=== PATIENT | male | born 1975 | race Caucasian/White ===

== ENCOUNTER 2021-08-24 12:51 | Emergency (ER) | payer MEDICAID, SELFPAY ==
[2021-08-24 12:52] VITALS: BP 176/105; PULSE 72; RESP 18; TEMP 36.7; O2SAT 99
--- NOTE | 2021-08-24 13:00 | DI.RAD_ITS ---
Exam(s) XR SHOULDER RT COMPLETE 2+V EXAM: XR SHOULDER RT COMPLETE 2+V CLINICAL HISTORY: pain, injury, crepitus. TECHNIQUE: 2D digital imaging was performed. COMPARISON: No exams were available for comparison FINDINGS: Four views of the right shoulder reveal no evidence of acute fracture nor dislocation. No abnormal s oft tissue calcifications. However, there are advanced osteoarthritic degenerative changes including advanced joint space narrowing and small osteophyte on the inferior articular surface of the humeral head. Subacromial space is not diminished. There is some osteophytic density paralleling the superior surf obie of the acromion which is probably degenerative versus prior trauma. IMPRESSION: Advanced degenerative changes in the glenohumeral joint. DATA REPOSITORY: RADIATION DOSE DELIVERED:
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
[2021-08-24] MEDS: Acetaminophen 325 MG TAB 650 MG PO (13:09)
== END 2021-08-24 15:11 | disposition home or self-care (01) ==
PROVIDERS: Emergency Provider Student in an Organized Health Care Education/Training Program
DX: M25.511 Pain in right shoulder (principal)
CPT/HCPCS: 99285; 73030; 99283

== ENCOUNTER 2021-10-23 10:55 | Emergency (ER) | payer MEDICAID, SELFPAY ==
[2021-10-23 10:58] VITALS: BP 144/85; PULSE 80; RESP 18; TEMP 36.3; O2SAT 98
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
== END 2021-10-23 11:51 | disposition home or self-care (01) ==
PROVIDERS: Emergency Provider Emergency Medicine
DX: S46.091A Other injury of muscle(s) and tendon(s) of the rotator cuff of right shoulder, initial encounter (principal); X58.XXXA Exposure to other specified factors, initial encounter
CPT/HCPCS: 99282

== ENCOUNTER 2021-11-22 09:15 | Emergency (ER) | payer MEDICAID, SELFPAY ==
[2021-11-22 09:17] VITALS: BP 161/91; PULSE 84; RESP 18; TEMP 36.8; O2SAT 99
--- NOTE | 2021-11-22 09:30 | DI.CT_ITS ---
Exam(s) CT ORBITS WO EXAM: CT ORBITS WO CLINICAL HISTORY: R/O Metal Foreign body right eye. TECHNIQUE: Imaging Protocol: Axial computed tomography images with coronal and sagittal reformatted images were created and reviewed CONTRAST MATERIAL: Intravenous: Noncontrast COMPARISON: No exams were available for comparison FINDINGS: Globes: The anterior and posterior chambers are intact. Optic Nerves: Normal. Extraocular muscles: Normal. Retrobulbar fat: Normal. Orbital chavarria: No definite fracture is noted. Sinuses: Minimal mucosal thickening. Soft Tissues: No foreign bodies visible. Mild artifact from dental work.. IMPRESSION: Normal CT scan of the orbits. No visible orbital foreign body. RADIATION DOSE DELIVERED: 561.36mGy.cm Total DLP DATA REPOSITORY: All CT scans at this facility are submitted to the National Radiology Data Registry (NRDR) Dose Index Registry (DIR) with the [employer] (ACR). RADIATION OPTIMIZATION: All CT scans at this facility use at least one of these dose optimization te chniques: automated exposure control; mA and/or kV adjustment per patient size (includes targeted exa ms where dose is matched to clinical indication); or iterative reconstruction.
[2021-11-22] MEDS: Tetracaine 0.5% 4 ML BTL OP (09:33)
[2021-11-22] MEDS: Balanced Salt Solution 15 ML BTL OP (09:33)
[2021-11-22] MEDS: Fluorescein STRIPS 100/BOX 1 MG OP (09:33)
--- NOTE | 2021-11-22 09:41 | W.ED.GENAD ---
Discharge Plan Disposition Patient Disposition: HOME Condition: Stable Discharge Details Clinical Impression: Foreign body in eye Primary Care Provider: None,None ED Provider: Regina Bowman Home Meds and New Rx's Prescriptions: Continued alprazolam 0.5 mg tablet 0.5 mg PO ONCE PRN (Reason: Claustrophobia) Qty: 2 0RF Rx Instructions: Take 1 60 minutes prior to MRI. May take an additional 1 if still anxious 30 mins prior to MRI. omeprazole 40 mg Capsule,Delayed Release(Dr/Ec) 40 mg PO DAILY methadone 40 mg Tablet,Soluble 110 mg PO DAILY Discharge Instructions Instructions: Eye Foreign Body (ED) Additional Instructions: A small foreign body was removed to your right cornea. There is no evidence of foreign bodies behind the eyes. Use the erythromycin ointment as directed 3 times a day for the next 5 to 7 days. Apply half an inch to the lower eyelid. Your pharmacy care management list to assist you in getting a primary care provider. Follow up with primary care provider in 3-5 days. Return to ED sooner if any worsening or concerns. Increase oral fluids. Please see [facility] for follow-up. [facility] [place] - [address] [place] [address] Phone:? tel: Referrals: Michelle Charles [ NON-[facility] STAFF PHYSICIAN] - 2 weeks Discharge Data Discharge Date/Time-TO BE ENTERED AT DEPARTURE: 11/22/21 11:05 Medical Decision Making 46-year-old male presents to the ER with chief complaint of possible mental foreign body to right eye. Patient reports that he was working underneath a car approximately 4 days ago when he felt something fall into his eye. He is concerned that it may be metal. He denies any blurry vision however his visual acuity is 20/80 on the left 20/100 on the right. He does not wear glasses. He is concerned because he has an MRI scheduled tomorrow for his right shoulder. Wood lamp exam performed with fluorescein tetracaine and NS solution. Patient tolerated well. See procedure note foreign body removal. Due to patient's scheduled MRI tomorrow for shoulder did order CT orbits to rule out any retained metal foreign body. Will place patient on erythromycin ophthalmic ointment and refer to [facility]. This text was generated using [employer] system, please disregard any oddities of phrase or misspellings. HPI General Mode of arrival: ambulatory. Date/Time Provider Initiated Documentation: 11/22/21 09:21. Limitations to Documentation: no limitations. Information obtained by: patient and RN notes reviewed. History of Present Illness and is localized to the eyes. Patient reports no radiation. Patient started experiencing this day(s) (4) and it has been constant. Patient notes no other symptoms.; denies headaches. Patient did receive the following treatments prior to arrival, other (He has been irrigating initially 4 days ago.) HPI Narrative: 46-year-old male presents to the ER with chief complaint of possible mental foreign body to right eye. Patient reports that he was working underneath a car approximately 4 days ago when he felt something fall into his eye. He is concerned that it may be metal. He denies any blurry vision however his visual acuity is 20/80 on the left 20/100 on the right. He does not wear glasses. He is concerned because he has an MRI scheduled tomorrow for his right shoulder. Related Data Home Medications Medication Instructions Recorded Confirmed methadone 40 mg soluble tablet 110 mg PO DAILY 08/24/21 11/22/21 omeprazole 40 mg capsule,delayed 40 mg PO DAILY 08/24/21 11/22/21 release alprazolam 0.5 mg tablet 0.5 mg PO ONCE PRN Claustrophobia 11/03/21 11/22/21 #2 tabs Previous Rx's Medication Instructions Recorded alprazolam 0.5 mg tablet 0.5 mg PO ONCE PRN Claustrophobia 11/03/21 #2 tabs Allergies Allergy/AdvReac Type Severity Reaction Status Date / Time ondansetron AdvReac Visual Unverified 11/22/21 09:21 Disturbances General Stated Complaint: EyeProblem VINNY: 3 Review of Systems Constitutional Constitutional: Reports as per HPI and Denies headache(s) Eyes Eyes: Reports as per HPI, Denies blurry vision, Denies change in vision, Denies diplopia, Denies loss of vision and Reports eye pain (He does report pain behind his eye) ENT Ears, Nose, Mouth, and Throat: Denies headache(s) Neurologic Neurologic: Denies headache(s) and Denies loss of vision PFSH All Active Problems (Updated 11/23/21 @ 00:05 by HYACINTH CANO) Foreign body in eye (Acute) Arthritis of right glenohumeral joint (Acute) Biceps tendinitis of right shoulder (Acute) Right rotator cuff tendonitis (Acute) Social History Smoking/Tobacco Use Status: Current every day Tobacco Type: cigarettes Tobacco: How many years used: 20 Smoking risk assessment performed?: Yes Alcohol Intake: current Alcohol Intake frequency: 3 or more drinks per day Alcohol type: beer Drug use: Never Substance use type: former substance user Current gender identity: male Do you feel safe at home: Yes Do you feel safe in your relationship?: Yes Exam HENMT Head: normal to inspection and normocephalic Eyes Alignment and Position: alignment normal Periorbital: periorbital findings normal Eyelids: eyelids normal Conjunctivae: conjunctival abnormality Cornea: corneas abnormal and fluorescein used Pupils: pupil size on the right 2 and on the left 3 EOM: EOM intact bilaterally Direct ophthalmoscopy: decreased pupillary light reflex on the right Eyes/upper lids images: 1. Visualized black foreign body possibly metal, removed with Q-tip. No fluorescein uptake in the eye no significant corneal abrasion. No rust ring visualized. Course Vital Signs Vital signs: Vital Signs Temperature 36.8 C 11/22/21 09:17 Pulse 84 11/22/21 09:17 Respiratory Rate 18 11/22/21 09:17 Blood Pressure 161/91 H 11/22/21 09:17 Pulse Oximetry 99 11/22/21 09:17 Temperature 36.8 C 11/22/21 09:17 Temperature Source Temporal Artery Scan 11/22/21 09:17 Pulse 84 11/22/21 09:17 Respiratory Rate 18 11/22/21 09:17 Respiratory Effort 11/22/21 09:20 Blood Pressure 161/91 H 11/22/21 09:17 Blood Pressure Position Sitting 11/22/21 09:17 Pulse Oximetry 99 11/22/21 09:17 Oxygen Delivery Method Room Air 11/22/21 09:17 Oxygen Flow Rate 0 11/22/21 09:17 Pain Level 2 11/22/21 09:17 Procedures FB Removal Eye Time Out performed: Yes Location: eye (R) Topical anesthetic used: tetracaine Foreign body: metal Technique: cotton tip swab Procedure performed under: direct visualization with magnification Post-procedure medication: ophthalmic antibiotic and topical anesthetic Patient tolerated procedure: well and no complications Complications: residual rust ring (No rust ring noted) PAWSS Have you Been Recently Intoxicated or Drunk Within the Last 30 days?: Yes Have you Ever Experienced Previous Episodes of Alcohol Withdrawal?: No Have you ever Experienced Withdrawal Seizures?: No Have you ever Experienced Delirium Tremens(DT)s?: No Have you ever undergone Alcohol Rehabilitation Treatment (i.e, inpt ot outpatient treatment programs)?: No Have you ever Experienced Blackouts?: No Have you ever Combined Alcohol with other Downers within the last 90 days?: No Have you ever Combined Alcohol with any other Substance of Abuse during the last 90 days?: No Positive Blood Alcohol level on Presentation? [PCS.BAL]: No Evidence of Increased Autonomic Activity (i.e. HR>120, tremor, sweating, agitation, nausea)?: No Result: 1
[2021-11-22] MEDS: Erythromycin Ophth Oint 3.5 GM TUBE OD (10:03)
== END 2021-11-22 11:05 | disposition home or self-care (01) ==
PROVIDERS: Emergency Provider Registered Nurse Emergency
DX: T15.01XA Foreign body in cornea, right eye, initial encounter (principal); W26.8XXA Contact with other sharp object(s), not elsewhere classified, initial encounter
CPT/HCPCS: 65205; 99284; 70480; 99283

== ENCOUNTER → 2021-11-23 00:34 | Outpatient (CLI) | payer MEDICAID, SELFPAY ==
--- NOTE | 2021-11-23 | DI.CT_ITS ---
Exam(s) CT UPPER EXTREMITY RT WO EXAM: CT UPPER EXTREMITY RT WO CLINICAL HISTORY: presurgical planning, injury arthritis,tendonitis, m19.011,m75.21. TECHNIQUE: Imaging Protocol: Axial computed tomography images with coronal and sagittal reformatted images were created and reviewed. COMPARISON: CR XR SHOULDER RT COMPLETE 2+V from 08/24/2021 FINDINGS: AC joint: Mild degenerative changes. No significant inferior spurring. Glenohumeral joint: Severe joint space narrowing, [id number] appearance with deformity of the gleno id the some bony fragmentation. There is prominent spurring, sclerosis and subchondral cyst formatio n. There is a large amount of surrounding fluid. Subchondral cysts are also seen in the superior hu meral head. There is no significant muscular atrophy. [place] and paraseptal emphysematous changes ar e noted at the right lung apex. IMPRESSION: End-stage degenerative changes of the glenohumeral joint. RADIATION DOSE DELIVERED: 783.7mGy.cm Total DLP 783.7mGy.cm Total DLP DATA REPOSITORY: All CT scans at this facility are submitted to the National Radiology Data Registry (NRDR) Dose Index Registry (DIR) with the [employer] (ACR). RADIATION OPTIMIZATION: All CT scans at this facility use at least one of these dose optimization te chniques: automated exposure control; mA and/or kV adjustment per patient size (includes targeted exa ms where dose is matched to clinical indication); or iterative reconstruction.
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
== END ==
PROVIDERS: Visit Provider Student in an Organized Health Care Education/Training Program
DX: M25.511 Pain in right shoulder (principal); M19.011 Primary osteoarthritis, right shoulder; M75.21 Bicipital tendinitis, right shoulder; M75.81 Other shoulder lesions, right shoulder; S46.091A Other injury of muscle(s) and tendon(s) of the rotator cuff of right shoulder, initial encounter; M25.411 Effusion, right shoulder
CPT/HCPCS: 73200; 73221

== ENCOUNTER 2021-12-08 09:03 | Outpatient (CLI) | payer MEDICAID, SELFPAY ==
--- NOTE | 2021-12-08 08:45 | DI.RAD_ITS ---
Exam(s) XR SHOULDER RT COMPLETE 2+V EXAM: XR SHOULDER RT COMPLETE 2+V CLINICAL HISTORY: RIGHT SHOULDER. TECHNIQUE: 2D digital imaging was performed of the right shoulder. Two images were obtained. AP an d axillary views were obtained. COMPARISON: CR XR SHOULDER RT COMPLETE 2+V from 08/24/2021 FINDINGS: BONES: No acute fracture is present. No bony destructive lesion is seen. JOINTS: No dislocation present. There again seen marked degenerative changes of the glenohumeral join t with joint space narrowing, subchondral sclerosis and periarticular spurring. Degenerative changes are also seen at the acromioclavicular joint. SOFT TISSUE: Normal. IMPRESSION: Marked degenerative changes of the glenohumeral joint. DATA REPOSITORY: RADIATION DOSE DELIVERED:
== END 2021-12-08 09:04 | disposition home or self-care (01) ==
LOC: DIORS 09:03
PROVIDERS: Visit Provider Student in an Organized Health Care Education/Training Program
DX: M19.011 Primary osteoarthritis, right shoulder (principal)
CPT/HCPCS: 73030

== ENCOUNTER 2022-12-05 14:39 | Emergency (ER) | payer MEDICAID, SELFPAY ==
[2022-12-05 14:41] VITALS: BP 153/98; PULSE 97; RESP 16; TEMP 36.9; O2SAT 98
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
[2022-12-05] MEDS: Normal Saline 1,000 ML 1000 ML IV (15:36)
[2022-12-05] MEDS: ACETAMINOPHEN 1,000 MG/100 ML BTL 400 MG IVPB (15:37)
[2022-12-05 15:38] LABS: Abs Immature Grans 0.02 10^3/uL (0.0-0.06); Absolute Basophil Count 0.04 10^3/uL (0.0-0.2); Absolute Eosinophil Count 0.28 10^3/uL (0.0-0.7); Absolute Lymphocyte Count 1.43 10^3/uL (1.2-3.4); Absolute Monocyte Count 0.59 10^3/uL (0.1-0.8); Absolute Neutrophil Count 4.69 10^3/uL (1.2-6.7); Basophils % 0.6; HCT 40.3 % (40.0-50.0); HGB 13.9 g/dL (13.5-17.5); Immature Grans % 0.3; Lymphocytes % 20.3; MCH 29.3 pg (27.0-33.0); MCHC 34.5 % (32.0-36.0); MCV 85 fL (80-95); Monocytes % 8.4; Neutrophils % 66.4; Platelet Count 233 10^3/uL (130-400); RBC 4.75 10^6/uL (4.36-5.78); RDW 13.4 % (11.8-14.1); RDW-SD 41.4 fL; WBC 7.05 10^3/uL (4.4-10.8)
[2022-12-05 15:54] LABS: ETHANOL BLOOD 24.4 mg/dL (<10)
[2022-12-05 15:59] LABS: ALT 43 U/L (16-63); AST 51 U/L (15-37); Albumin 3.4 g/dL (3.4-5.0); Alkaline Phosphatase 140 U/L (46-116); Anion Gap 7.1 mmol/L (3-11); BUN 9 mg/dL (7-18); Bilirubin, Total 0.5 mg/dL (0.2-1.0); CO2 26.9 mmol/L (21.0-32.0); CREATININE 0.7 mg/dL (0.70-1.30); Calcium 9.1 mg/dL (8.5-10.1); Chloride 101 mmol/L (98-107); Estimated GFR 112.95 (mL/min/1.73m2); Glucose 84 mg/dL (74-106); Magnesium 1.7 mg/dL (1.8-2.4); Potassium 3.9 mmol/L (3.5-5.1); Sodium 135 mmol/L (136-145); Troponin I < 50 ng/L (<or=60)
[2022-12-05 16:05] LABS: PTT Activated 27.5 sec (21.5-31.9); Prothrombin Time 10.2 sec (9.3-11.0)
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
[2022-12-05] MEDS: Normal Saline - Diluent 50 ML VIAL IJ (16:33)
[2022-12-05] MEDS: Normal Saline Flush 10 ML SYR IVP (16:34)
[2022-12-05] MEDS: Omnipaque 350 MG/ML 500 ML BTL-Imaging package 100 ML IJ (16:34)
[2022-12-05 16:56] LABS: Bilirubin Negative (Negative); Blood Negative (Negative); Clarity Clear (Clear); Glucose Negative (Negative); Ketones Negative (Negative); Leukocyte Esterase Negative (Negative); Nitrite Negative (Negative); Specific Gravity 1.015 (1.005-1.025); Urobilinogen 0.2 mg/dL (Up to 0.2); pH 7.5 (5-8)
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
--- NOTE | 2022-12-05 17:55 | NUR.NOTE ---
pcp refferal madeNursing Note:
== END 2022-12-05 18:01 | disposition home or self-care (01) ==
PROVIDERS: Nurse Practitioner Family; Emergency Provider Physician Assistant
DX: S06.0X0A Concussion without loss of consciousness, initial encounter (principal); V89.2XXA Person injured in unspecified motor-vehicle accident, traffic, initial encounter
CPT/HCPCS: 74177; 80053; 96361; 96365; 99285; 70450; 70486; 71260; 72125; 80320; 81003; 83735; 84484; 85025; 85610; 85730; 99284; J0131